=== PATIENT | female | born 1985 | race Caucasian/White ===

== ENCOUNTER 2018-07-31 07:33 | Outpatient (CLI) | payer OTHER | END 2018-07-31 07:51 | disposition home or self-care (01) | LOC: RAD 07:33 | DX: M77.31 Calcaneal spur, right foot (principal) ==

== ENCOUNTER 2019-06-07 09:09 | Outpatient (CLI) | payer OTHER | END 2019-06-07 09:32 | disposition home or self-care (01) | LOC: MAMO-SONO 09:09 | DX: Z12.31 Encounter for screening mammogram for malignant neoplasm of breast (principal) ==

== ENCOUNTER 2020-01-15 08:05 | Outpatient (CLI) | payer OTHER | END 2020-01-15 08:17 | disposition home or self-care (01) | LOC: SONOGRAMA 08:05 → MAMO-SONO 08:15 → SONOGRAMA 08:17 | DX: E04.1 Nontoxic single thyroid nodule (principal) ==

== ENCOUNTER 2021-01-23 08:11 | Outpatient (CLI) | payer OTHER | END 2021-01-23 08:20 | disposition home or self-care (01) | LOC: RAD 08:11 | DX: M25.561 Pain in right knee (principal) ==

== ENCOUNTER 2021-11-09 07:18 | Outpatient (CLI) | payer OTHER | END 2021-11-09 07:24 | disposition home or self-care (01) | LOC: RAD 07:18 | PROVIDERS: ATTEND General Practice | DX: M54.16 Radiculopathy, lumbar region (principal) ==

== ENCOUNTER 2021-11-18 08:46 | Outpatient (CLI) | payer OTHER | END 2021-11-18 08:56 | disposition home or self-care (01) | LOC: SONOGRAMA 08:46 | PROVIDERS: ATTEND General Practice | DX: Z12.31 Encounter for screening mammogram for malignant neoplasm of breast (principal); N60.39 Fibrosclerosis of unspecified breast ==

== ENCOUNTER 2022-12-15 07:34 | Outpatient (CLI) | payer OTHER | END 2022-12-15 07:56 | disposition home or self-care (01) | LOC: SONOGRAMA 07:34 | PROVIDERS: ATTEND General Practice | DX: K76.0 Fatty (change of) liver, not elsewhere classified (principal) ==

== ENCOUNTER 2023-02-20 08:52 | Outpatient (CLI) | payer OTHER | END 2023-02-20 09:03 | disposition home or self-care (01) | LOC: SONOGRAMA 08:52 | PROVIDERS: ATTEND Obstetrics & Gynecology | DX: N60.01 Solitary cyst of right breast (principal); N60.02 Solitary cyst of left breast; R10.2 Pelvic and perineal pain; N93.8 Other specified abnormal uterine and vaginal bleeding ==

== ENCOUNTER 2023-06-02 07:22 | Outpatient (CLI) | payer OTHER | END 2023-06-02 07:31 | disposition home or self-care (01) | LOC: TOM 07:22 | PROVIDERS: ATTEND General Practice | DX: R42 Dizziness and giddiness (principal) ==

== ENCOUNTER 2024-04-16 09:28 | Outpatient (CLI) | payer OTHER | END 2024-04-16 09:41 | disposition home or self-care (01) | LOC: SONOGRAMA 09:28 | DX: Z32.00 Encounter for pregnancy test, result unknown (principal) ==

== ENCOUNTER 2024-08-29 15:24 | Outpatient (CLI) | payer OTHER | END 2024-08-29 16:35 | disposition home or self-care (01) | LOC: NST 15:24 | PROVIDERS: ATTEND Obstetrics & Gynecology Maternal & Fetal Medicine | DX: Z34.83 Encounter for supervision of other normal pregnancy, third trimester (principal) ==

== ENCOUNTER 2024-09-27 12:28 | Outpatient (CLI) | payer OTHER | END 2024-09-27 14:42 | disposition home or self-care (01) | LOC: OBS/DEL 12:28 → NST 12:28 | PROVIDERS: ATTEND Obstetrics & Gynecology Maternal & Fetal Medicine | DX: Z34.83 Encounter for supervision of other normal pregnancy, third trimester (principal) ==

== ENCOUNTER 2024-10-04 10:20 | Outpatient (CLI) | payer OTHER | END 2024-10-04 14:18 | disposition home or self-care (01) | LOC: NST 10:20 | PROVIDERS: ATTEND Obstetrics & Gynecology Maternal & Fetal Medicine | DX: Z34.83 Encounter for supervision of other normal pregnancy, third trimester (principal) ==

== ENCOUNTER 2024-10-10 16:33 | Outpatient (CLI) | payer OTHER ==
[2024-10-10 17:06] VITALS: BP 129/85
== END 2024-10-10 17:38 | disposition home or self-care (01) ==
LOC: NST 16:33
PROVIDERS: ATTEND Obstetrics & Gynecology Maternal & Fetal Medicine
DX: Z34.83 Encounter for supervision of other normal pregnancy, third trimester (principal)

== ENCOUNTER 2024-10-28 09:41 | Outpatient (CLI) | payer OTHER ==
[2024-10-29] MEDS ORDERED: SYNTHROID50 MCG PO (15:25)
[2024-10-29] MEDS ORDERED: LABETALOL HCL200 MG PO (15:27)
== END 2024-10-28 11:57 | disposition home or self-care (01) ==
LOC: NST 09:41
PROVIDERS: ATTEND Obstetrics & Gynecology Maternal & Fetal Medicine
DX: Z34.83 Encounter for supervision of other normal pregnancy, third trimester (principal)

== ENCOUNTER 2024-10-29 14:32 | Inpatient (IN) | payer OTHER ==
[~2024-10-29] VITALS: Ht 162.6 cm; Wt 89.4 kg
[2024-10-29 15:00] VITALS: BP 125/76; O2SAT 98
[2024-10-29] MEDS ORDERED: SYNTHROID50 MCG PO (15:25)
[2024-10-29] MEDS ORDERED: LABETALOL HCL200 MG PO (15:27)
[2024-10-29] MEDS ORDERED: RINGERS SOLUTION,LACTATED 1,000 ML IV SCH (15:45)
[2024-10-29] MEDS ORDERED: MISOPROSTOL 25 MCG TABLET VAG ONE (15:45)
[2024-10-29 16:28] LABS: BASO % 0.3 % (0.1-1.2); EOS # 0.07 (0.04-0.54); EOS % 0.8 % (0.7-7.0); LYMPH # 1.46 (1.18-3.74); LYMPH % 15.9 % (19.3-53.1); MONO # 0.84 (0.24-0.82); MONO % 9.2 % (4.7-12.5); NEUT # 6.73 (1.56-6.13); NEUT % 73.5 % (34.0-71.1); RED CELL DISTRIBUTION WIDTH 13.9 % (11.6-14.4)
[2024-10-29 16:52] LABS: INR < 0.93
[2024-10-29] MEDS ORDERED: MORPHINE SULFATE 4 MG/ML CARTRIDGE IV PRN (17:00)
[2024-10-29 17:02] LABS: ALT/SGPT 21.0 U/L (12-78); AST/SGOT 21.0 U/L (15-37); BILIRUBIN TOTAL 0.32 mg/dL (0.3-1.2); BUN CREA RATIO 13.0 (7.0-25.0); CREATININE SERUM 0.72 mg/dL (0.55-1.02); GFR 89.26; GLOBULINA 3.4 G/DL (2.4-3.5); GLUCOSE FASTING 98.0 mg/dL (65-100); OSMOLALITY SERUM 282.0 MOSM/KG (275-295)
[2024-10-29 18:50] VITALS: BP 152/76
[2024-10-29] MEDS ORDERED: LABETALOL HCL 200 MG TABLET PO SCH (21:00)
[2024-10-29 23:35] VITALS: BP 151/82
[2024-10-30] VITALS (8 sets, daily range): BP systolic 140–158; BP diastolic 69–88
[2024-10-30] MEDS ORDERED: ACETAMINOPHEN 500 MG GEL..CAP PO PRN (03:30)
[2024-10-30] MEDS ORDERED: LABETALOL HCL 200 MG TABLET PO SCH (05:00)
[2024-10-30] MEDS ORDERED: LEVOTHYROXINE SODIUM 50 MCG TABLET PO SCH (06:00)
[2024-10-30] MEDS ORDERED: OXYTOCIN 500 ML IV ONE ×2 (07:30→08:15)
[2024-10-30] MEDS ORDERED: FAMOTIDINE/PF 20 MG/2 ML VIAL IV PUSH SCH (09:00)
[2024-10-30] MEDS ORDERED: CHLORHEXIDINE GLUCONATE 120 ML BOTTLE TP SCH (10:00)
[2024-10-30] MEDS ORDERED: OXYTOCIN 1,000 ML IV SCH (10:00)
[2024-10-30] MEDS ORDERED: ERYTHROMYCIN BASE OPHT 1GM EACH TUBE OP ONE (10:45)
[2024-10-30] MEDS ORDERED: LIDOCAINE HCL 1% 10ML VIAL IJ ONE (10:45)
[2024-10-31] VITALS: BP 140/80
[2024-10-31 06:15] LABS: BASO % 0.4 % (0.1-1.2); EOS # 0.09 (0.04-0.54); EOS % 0.8 % (0.7-7.0); LYMPH # 2.05 (1.18-3.74); LYMPH % 18.2 % (19.3-53.1); MEAN PLATELET VOLUME 14.80 fl (9.4-12.4); MONO # 1.07 (0.24-0.82); MONO % 9.5 % (4.7-12.5); NEUT # 7.98 (1.56-6.13); NEUT % 70.8 % (34.0-71.1); RED CELL DISTRIBUTION WIDTH 13.9 % (11.6-14.4)
[2024-10-31 08:42] VITALS: BP 148/91
[2024-10-31 16:00] VITALS: BP 139/73
[2024-11-01 01:00] VITALS: BP 170/100
[2024-11-01] MEDS ORDERED: LEVOTHYROXINE SODIUM 200 MCG TABLET PO SCH (04:02)
[2024-11-01] MEDS ORDERED: LEVOTHYROXINE SODIUM 50 MCG TABLET PO SCH (06:00)
[2024-11-01 06:48] VITALS: BP 140/80
[2024-11-01 08:20] VITALS: BP 125/80
== END 2024-11-01 13:47 | disposition home or self-care (01) | DRG 807 ==
LOC: LDR 14:32 → OB/GYN 10-30 11:20
PROVIDERS: ADMIT Obstetrics & Gynecology; ATTEND Obstetrics & Gynecology
PROC: 4A1HXCZ Monitoring of Products of Conception, Cardiac Rate, External Approach (ICD-10-PCS; 2024-10-29)
PROC: 3E0P7VZ Introduction of Hormone into Female Reproductive, Via Natural or Artificial Opening (ICD-10-PCS; 2024-10-29)
PROC: 10E0XZZ Delivery of Products of Conception, External Approach (ICD-10-PCS; principal; 2024-10-30)
PROC: 3E033VJ Introduction of Other Hormone into Peripheral Vein, Percutaneous Approach (ICD-10-PCS; 2024-10-30)
DX: O80 Encounter for full-term uncomplicated delivery (principal); Z37.0 Single live birth; Z3A.37 37 weeks gestation of pregnancy

== ENCOUNTER 2024-12-03 08:39 | Outpatient (CLI) | payer OTHER ==
[~2024-12-03 08:39] MED LIST: LABETALOL HCL200 MG PO; SYNTHROID50 MCG PO
== END 2024-12-03 08:49 | disposition home or self-care (01) ==
LOC: MAMO-SONO 08:39
PROVIDERS: ATTEND Obstetrics & Gynecology
DX: N60.11 Diffuse cystic mastopathy of right breast (principal); N60.12 Diffuse cystic mastopathy of left breast